=== PATIENT | female | born 1965 | race Caucasian/White ===

== ENCOUNTER 2024-10-23 13:56 | Outpatient (AMB) | payer OTHER, SELFPAY ==
--- NOTE | 2024-10-23 13:57 | A.OFFVIS_ITS ---
Vital Signs 10/23/24 14:07 Height 5 ft 4 in Weight 157 lb 6 oz BMI 27.0 BP 145/75 H Blood Pressure Location Rt brachial Position Sitting Pulse 82 Pulse Source Pulse Oximeter Pulse Oximetry (%) 98 Oxygen Delivery Method Room Air Intake Visit Reasons: Cervicalgia Intake Note: Pain today 4/10 [employer]per Required: No Accompanied by: Self / Same As Patient Allergies No Known Allergies Allergy (Verified 10/23/24 14:06) HPI Comments Details: Giovana is a very pleasant 59-year-old female who presents the office today for evaluation and management of her chronic right arm pain She has been suffering this pain for greater than 10 years. Denies inciting injury, trauma, fall Endorses pain from right AC down the lateral forearm into the thumb. Tenderness to palpation and worse with movement. Pain is worse some days in the other. Some days will be inflamed making it worse with movement and touch Currently taking NSAIDs without improvement. PCP recently started her on gabapentin 100 mg 3 times daily with some improvement but pain persists X-rays and cervical MRI reviewed, results as per below She has an EMG scheduled for next month Denies history of PT, chiropractor, acupuncture, massage or injections Pain today is rated as a 4/10, constant throughout the day She has been using compression gloves at night with some improvement of her hand pain Some improvement with soaking in her hot tub Does have a history of polyarthritis and multi joint inflammation. Evaluated by Rheumatology many years ago, ultimately diagnosed with fibromyalgia. Though not currently being treated for this. In terms of muscle damage condition is described as spreading, radiating, piercing, sharp, cutting, burning, aching, throbbing Pain is negatively impacting patient's mood, sleep, general activity, work, ability to perform activities of daily living Denies current use of anticoagulants Denies implantable devices, pacemaker or defibrillator 1/2 pack-a-day smoker. Denies current use of alcohol or illicit substances [facility] Medical History (Updated 10/23/24 @ 15:31 by Karen Lord APRN, ASSISTANT [employer]) Arthralgia Paresthesia Depression with anxiety Grief reaction Sleep trouble Cervicalgia Myalgia Fibromyalgia Hypercholesterolemia Review of Systems Const All systems reviewed & are unremarkable except as noted in HPI and below Physical Exam Vital Signs: Last Vital Signs Pulse 82 10/23/24 14:07 BP 145/75 H 10/23/24 14:07 Pulse Ox 98 12/20/24 14:07 Oxygen Delivery Method Room Air 10/23/24 14:07 BMI result Body Mass Index 27.0 General: awake, alert, oriented. Answers questions appropriately. Fully engaged in examination. Skin: warm, dry, intact HEENT: Normocephalic. Hearing intact. Cardiac: External chest normal in appearance. Respiratory: No cough, audible wheezing or stridor. Abdomen: without gross distension. MS: No obvious swelling or deformities. Tenderness to palpation right anterior medial forearm from antecubital fossa to wrist, tenderness to right thumb Neurological: Oriented to person, place, time and situation. Thought process intact. No gait abnormalities appreciated. Psychiatric: Appropriate mood and affect. Good judgment and insight. Results Reviewed Results Reviewed: 10/09/24 X-ray cervical spine: Impression: Straightening of the normal cervical lordosis which may represent positioning or muscle spasm progression of moderate loss of disc space height and endplate ridging at C5-6 and C6-7 10/08/2024 x-ray bilateral hands Impression: Normal examination of both hands 10/16/24 MRI cervical spine: Impression: Some degenerative disc disease and degenerative changes mid cervical spine at C5-6 and C6-7. No central canal stenosis. Assessment & Plan Assessment & Plan (1) Polyarthralgia: Code(s): M25.50 - Pain in unspecified joint Category: Medical (2) Right arm pain: Code(s): M79.601 - Pain in right arm Category: Medical (3) Right hand pain: Code(s): M79.641 - Pain in right hand Category: Medical (4) Paresthesia: Code(s): R20.2 - Paresthesia of skin Category: Medical Plan Referral placed to rheumatology for polyarthralgia Will increase gabapentin to 300 mg p.o. 3 times daily. Patient advised on cautions for use New prescription for celecoxib 50 mg p.o. twice daily. Patient advised on cautions for use Continue with plan for EMG in 1 month. All questions and concerns were answered, patient agrees with plan. Follow up after EMG, sooner if needed Orders: Referrals Rheumatology Referral M25.50 - Pain in unspecified joint Medications: New gabapentin 300 mg PO TID 90 caps 3RF celecoxib Discontinue naproxen. Do not take with any other nonsteroidal anti-infla mmatory medications. Take with food 50 mg PO BID 60 caps 3RF Coding Level of Care Code New Pt Level 4 (57264) Complex EM visit Add On G2211 Diagnoses Polyarthralgia M25.50 Right arm pain M79.601 Right hand pain M79.641 Paresthesia R20.2
[2024-10-23 14:07] VITALS: BP 145/75; PULSE 82; O2SAT 98; BMI 27.0
== END 2024-10-23 14:40 | disposition home or self-care (01) ==
PROVIDERS: PCP Nurse Practitioner; Visit Provider Registered Nurse Emergency
DX: M25.50 Pain in unspecified joint (principal); M79.601 Pain in right arm; M79.641 Pain in right hand; R20.2 Paresthesia of skin
CPT/HCPCS: 99204; G2211